=== PATIENT | male | born 1940 | race Caucasian/White ===

== ENCOUNTER 2017-11-19 15:44 | Inpatient (IN) | payer BC, MEDICARE ==
[~2017-11-19] VITALS: Ht 170.2 cm; Wt 70.0 kg
[~2017-11-19 15:44] MED LIST: FLOMAX 0.40.4 MG/CAP PO; LEVAQUIN; LIPITOR 10MG10 MG PO; [UNRECOGNIZED DRUG - OTHER]
[2017-11-19 16:23] LABS: BASO % 0.2 % (0.0-2.0); EOS % 0.1 % (0-4.0); GRAN # 9.2 (1.4-6.5); GRAN % 83.4 % (42.2-75.2); HEMATOCRIT 41.1 % (42.0-52.0); HEMOGLOBIN 14.2 g/dl (13.5-18.0); LYMPH # 0.6 (1.2-3.4); LYMPH % 5.3 % (20.0-51.0); MEAN CELL VOLUME 88 fl (80.0-100.0); MEAN CORPUSCULAR HEMOGLOBIN 31 pg (27.0-31.0); MEAN CORPUSCULAR HGB CONC 35 g/dl (33.0-37.0); MEAN PLATELET VOLUME 11.4 fl (7.4-10.4); MONO # 1.1 (0.1-0.6); MONO % 10.2 % (1.7-9.3); PLATELET COUNT 243 K/mm3 (130-400); RED BLOOD COUNT 4.66 M/mm3 (4.20-5.60); REDCELL DISTRIBUTION WIDTH-CV 12.1 % (11.5-14.5)
[2017-11-19 16:28] LABS: ALBUMIN 3.4 gm/dL (3.5-5.0); BILIRUBIN,TOTAL 0.5 mg/dL (0.0-1.0); CALCIUM 8.8 mg/dL (8.4-10.2); CREATININE, serum 1.1 mg/dL (0.66-1.25); POTASSIUM 3.2 mmol/L (3.4-5.0); TOTAL PROTEIN 6.8 gm/dL (6.4-8.2)
[2017-11-19 16:46] LABS: COLLECTION METHOD CATHETER
[2017-11-19 17:03] LABS: BUDDING YEAST Present /hpf; MUCOUS Present /lpf; PH 5 (5-8); SQUAMOUS EPITHELIAL 0-2 /hpf; URINE APPEARANCE Turbid; URINE BACTERIA None Seen /hpf; URINE BILIRUBIN Negative (NEGATIVE); URINE BLOOD 2+ (NEGATIVE); URINE CALCIUM OXALATE CRYSTAL Present /hpf; URINE COLOR Amber; URINE GLUCOSE Negative (NEGATIVE); URINE KETONE Negative (NEGATIVE); URINE LEUKOCYTE ESTERASE Trace (NEGATIVE); URINE NITRATE Negative (NEGATIVE); URINE PROTEIN(semi-quant) 2+ (NEGATIVE); URINE RBC >50 /hpf
[2017-11-19] MEDS ORDERED: FLOMAX 0.40.4 MG/CAP PO (19:11)
[2017-11-19] MEDS ORDERED: PRILOSEC10 MG PO (19:11)
[2017-11-19] MEDS ORDERED: SULFA (19:12)
[2017-11-19 20:29] VITALS: BP 139/77; PULSE 93; TEMP 98.7
[2017-11-19 23:48] VITALS: BP 133/90; PULSE 88; TEMP 98.7
[2017-11-20] VITALS (12 sets, daily range): BP systolic 112–139; BP diastolic 56–80; PULSE 67–93; TEMP 97.5–98.5
[2017-11-20 07:25] LABS: MEAN CELL VOLUME 90 fl (80.0-100.0); MEAN CORPUSCULAR HGB CONC 34 g/dl (33.0-37.0); MEAN PLATELET VOLUME 11.7 fl (7.4-10.4); PLATELET COUNT 202 K/mm3 (130-400); RED BLOOD COUNT 4.03 M/mm3 (4.20-5.60); REDCELL DISTRIBUTION WIDTH-CV 12.3 % (11.5-14.5)
[2017-11-20 07:26] LABS: HEMATOCRIT 36.1 % (42.0-52.0); HEMOGLOBIN 12.1 g/dl (13.5-18.0); MEAN CORPUSCULAR HEMOGLOBIN 30 pg (27.0-31.0)
[2017-11-20 07:42] LABS: BAND 1 % (0-10); LYMPHOCYTE 16 % (20.0-51.0); METAMYELOCYTE 1 % (0-0); NEUTROPHILS 72 % (42.0-75.2); PLATELET ESTIMATE NORMAL (NORMAL)
[2017-11-20 07:44] LABS: CALCIUM 7.8 mg/dL (8.4-10.2); CREATININE, serum 0.84 mg/dL (0.66-1.25); MAGNESIUM 2.3 mg/dL (1.6-2.3); POTASSIUM 3.2 mmol/L (3.4-5.0)
[2017-11-21 03:06] VITALS: BP 147/71; PULSE 85; TEMP 98
[2017-11-21 06:37] LABS: BASO % 0.2 % (0.0-2.0); EOS # 0.1 (0.0-0.7); EOS % 0.6 % (0-4.0); GRAN % 82.3 % (42.2-75.2); HEMATOCRIT 37.4 % (42.0-52.0); HEMOGLOBIN 12.6 g/dl (13.5-18.0); LYMPH # 0.8 (1.2-3.4); LYMPH % 7.5 % (20.0-51.0); MEAN CELL VOLUME 90 fl (80.0-100.0); MEAN CORPUSCULAR HEMOGLOBIN 30 pg (27.0-31.0); MEAN CORPUSCULAR HGB CONC 34 g/dl (33.0-37.0); MEAN PLATELET VOLUME 11.7 fl (7.4-10.4); MONO # 0.9 (0.1-0.6); MONO % 8.6 % (1.7-9.3); PLATELET COUNT 217 K/mm3 (130-400); RED BLOOD COUNT 4.15 M/mm3 (4.20-5.60)
[2017-11-21 06:50] LABS: CALCIUM 7.7 mg/dL (8.4-10.2); CREATININE, serum 0.7 mg/dL (0.66-1.25); POTASSIUM 3.4 mmol/L (3.4-5.0)
[2017-11-21 07:29] VITALS: BP 126/64; PULSE 76; TEMP 98.5
[2017-11-21 12:16] VITALS: BP 130/67; PULSE 68; TEMP 98.1
[2017-11-21 16:15] VITALS: BP 146/65; PULSE 68; TEMP 98.2
[2017-11-21 20:00] VITALS: BP 137/64; PULSE 64; TEMP 98
[2017-11-21 21:25] VITALS: BP 153/50; PULSE 70; TEMP 98
[2017-11-22] VITALS: BP 137/64; PULSE 64; TEMP 98
[2017-11-22 04:00] VITALS: BP 134/65; PULSE 73; TEMP 97.9
[2017-11-22 08:00] VITALS: BP 141/62; PULSE 67; TEMP 97.8
[2017-11-22 13:00] VITALS: BP 141/65; PULSE 87; TEMP 98.2
[2017-11-22 17:13] VITALS: BP 122/65; PULSE 79; TEMP 98.2
[2017-11-22 20:15] VITALS: BP 126/66; PULSE 84; TEMP 98.2
[2017-11-23] VITALS (7 sets, daily range): BP systolic 129–146; BP diastolic 60–74; PULSE 66–85; TEMP 97.5–98.5
[2017-11-23 07:41] LABS: HEMATOCRIT 37.2 % (42.0-52.0); HEMOGLOBIN 12.8 g/dl (13.5-18.0); MEAN CELL VOLUME 88 fl (80.0-100.0); MEAN CORPUSCULAR HEMOGLOBIN 30 pg (27.0-31.0); MEAN CORPUSCULAR HGB CONC 34 g/dl (33.0-37.0); MEAN PLATELET VOLUME 11.5 fl (7.4-10.4); PLATELET COUNT 270 K/mm3 (130-400); RED BLOOD COUNT 4.23 M/mm3 (4.20-5.60); REDCELL DISTRIBUTION WIDTH-CV 12.1 % (11.5-14.5)
[2017-11-23 07:50] LABS: CREATININE, serum 0.68 mg/dL (0.66-1.25); POTASSIUM 3.7 mmol/L (3.4-5.0)
[2017-11-23 08:31] LABS: BAND 4 % (0-10); EOSINOPHIL 3 % (0-4); LYMPHOCYTE 14 % (20.0-51.0); METAMYELOCYTE 1 % (0-0); NEUTROPHILS 74 % (42.0-75.2); PLATELET ESTIMATE NORMAL (NORMAL)
[2017-11-24 04:29] VITALS: BP 151/75; PULSE 70; TEMP 97.5
[2017-11-24] MEDS ORDERED: TYLENOL 325MG325 MG PO (07:22)
[2017-11-24 07:30] VITALS: BP 131/68; PULSE 70; TEMP 97.4
[2017-11-24 07:39] LABS: CREATININE, serum 0.68 mg/dL (0.66-1.25); POTASSIUM 3.9 mmol/L (3.4-5.0)
[2017-11-24 11:22] VITALS: BP 134/77; PULSE 67; TEMP 98.4
[2017-11-24 15:06] VITALS: BP 138/68; PULSE 79; TEMP 97.6
[2017-11-24 19:28] VITALS: BP 136/47; PULSE 73; TEMP 97.5
[2017-11-25 03:49] VITALS: BP 147/73; PULSE 72; TEMP 98.4
[2017-11-25 06:48] LABS: HEMATOCRIT 39.4 % (42.0-52.0); MEAN CELL VOLUME 91 fl (80.0-100.0); MEAN CORPUSCULAR HEMOGLOBIN 30 pg (27.0-31.0); MEAN CORPUSCULAR HGB CONC 33 g/dl (33.0-37.0); MEAN PLATELET VOLUME 11.3 fl (7.4-10.4); PLATELET COUNT 315 K/mm3 (130-400); RED BLOOD COUNT 4.33 M/mm3 (4.20-5.60); REDCELL DISTRIBUTION WIDTH-CV 12.3 % (11.5-14.5)
[2017-11-25 08:00] VITALS: BP 142/78; PULSE 70; TEMP 97.8
[2017-11-25 08:17] LABS: EOSINOPHIL 5 % (0-4); LYMPHOCYTE 15 % (20.0-51.0); METAMYELOCYTE 1 % (0-0); NEUTROPHILS 70 % (42.0-75.2); PLATELET ESTIMATE NORMAL (NORMAL)
[2017-11-25 10:45] VITALS: BP 135/70; PULSE 73; TEMP 97.9
[2017-11-25 16:35] VITALS: BP 119/62; PULSE 81; TEMP 97.5
[2017-11-25 20:16] VITALS: BP 113/61; PULSE 83; TEMP 98
[2017-11-25 23:57] VITALS: BP 122/67; PULSE 69; TEMP 98
[2017-11-26 03:49] VITALS: BP 141/71; PULSE 76; TEMP 97.9
[2017-11-26 07:30] VITALS: BP 142/72; PULSE 73; TEMP 97.6
[2017-11-26] MEDS ORDERED: DULCOLAX S10 MG/SUPP RC (08:43)
[2017-11-26] MEDS ORDERED: AMITIZA24 MCG PO (08:43)
== END 2017-11-26 12:39 | disposition home or self-care (01) | DRG 389 ==
LOC: COL.ER 15:44 → SURG 17:19
PROVIDERS: Emergency Medicine; Internal Medicine; Nurse Practitioner Family; Physician Assistant; Surgery
PROC: 0DJD8ZZ Inspection of Lower Intestinal Tract, Via Natural or Artificial Opening Endoscopic (ICD-10-PCS; principal; 2017-11-20 11:00)
DX: K56.7 Ileus, unspecified (principal); B37.49 Other urogenital candidiasis; M48.56XA Collapsed vertebra, not elsewhere classified, lumbar region, initial encounter for fracture; E44.0 Moderate protein-calorie malnutrition; G35 Multiple sclerosis; R19.7 Diarrhea, unspecified; R33.9 Retention of urine, unspecified; R53.81 Other malaise; E78.5 Hyperlipidemia, unspecified
CPT/HCPCS: 99222-AI; 99223-AI; 99231-AI; 99232-AI; 99233-AI; 99239; C9113; G0378; G8978-GP; G8979-GP; J0696; J1650; J2704; J3480; J7030; Q9967

== ENCOUNTER → 2018-10-21 | Outpatient (CLI) | payer MEDICARE, BC ==
[~2018-10-21] MED LIST changes: +AMITIZA24 MCG PO; +DULCOLAX S10 MG/SUPP RC; +PRILOSEC10 MG PO; +SULFA; +TYLENOL 325MG325 MG PO
== END ==
LOC: COL.RAD 15:00
DX: N31.2 Flaccid neuropathic bladder, not elsewhere classified (principal); N40.0 Benign prostatic hyperplasia without lower urinary tract symptoms

== ENCOUNTER 2019-05-17 11:21 | Outpatient (CLI) | payer MEDICARE, BC ==
[~2019-05-17] VITALS: Ht 170.2 cm; Wt 76.8 kg
[2019-05-17] MEDS ORDERED: AVONEX PEN30 MCG/0.5 IM (11:40)
[2019-05-17] MEDS ORDERED: B-121000 MCG PO (11:43)
[2019-05-17] MEDS ORDERED: VITAMIN D 1001000 IU PO (11:43)
[2019-05-17] MEDS ORDERED: ALBUTEROL0.83 MG/ML IH (11:44)
[2019-05-17 11:47] VITALS: BP 121/91; PULSE 67; TEMP 98.4
[2019-05-17] MEDS ORDERED: PULMICORT0.5 MG/2 M IH (11:47)
[2019-05-17 15:00] VITALS: BP 142/73; PULSE 73
== END 2019-05-17 15:40 | disposition home or self-care (01) ==
LOC: EUO 11:21
DX: K56.7 Ileus, unspecified (principal)

== ENCOUNTER 2024-03-22 12:43 | Inpatient (IN) | payer MEDICARE, BC ==
[~2024-03-22] VITALS: Ht 180.3 cm; Wt 75.5 kg
[~2024-03-22 12:43] MED LIST changes: +ALBUTEROL0.83 MG/ML IH; +AVONEX PEN30 MCG/0.5 IM; -LIPITOR 10MG10 MG PO; +LIPITOR20 MG PO; +PRILOSEC 20MG20 MG PO; -PRILOSEC10 MG PO; +PULMICORT0.5 MG/2 M IH; +VITAMIN B12 781 TAB PO; +VITAMIN D 1001000 IU PO
[2024-03-22] MEDS ORDERED: NS 1,000 ML IV ONE (13:00)
[2024-03-22 13:08] LABS: BASO % 0.3 % (0.0-2.0); EOS # 0.2 K/mm3 (0.0-0.7); EOS % 3.2 % (0.0-4.0); GRAN # 5.5 K/mm3 (1.4-6.5); GRAN % 75.4 % (42.2-75.2); HEMATOCRIT 39.9 % (42.0-52.0); HEMOGLOBIN 13.2 g/dl (13.5-18.0); LYMPH # 0.9 K/mm3 (1.2-3.4); LYMPH % 11.7 % (20.0-51.0); MEAN CELL VOLUME 92 fl (80.0-100.0); MEAN CORPUSCULAR HEMOGLOBIN 31 pg (27-31); MEAN CORPUSCULAR HGB CONC 33 g/dl (33.0-37.0); MEAN PLATELET VOLUME 12.6 fl (7.4-10.4); MONO # 0.7 K/mm3 (0.1-0.6); MONO % 9.3 % (1.7-9.3); PLATELET COUNT 147 K/mm3 (130-400); RED BLOOD COUNT 4.32 M/mm3 (4.20-5.60); REDCELL DISTRIBUTION WIDTH-CV 13.1 % (11.5-14.5)
[2024-03-22 13:17] LABS: INR 1.1 (0.8-3.0); PROTHROMBIN TIME 12.2 SECONDS (9.7-12.8)
[2024-03-22 13:25] LABS: ALBUMIN 3.5 g/dL (3.4-4.8); BILIRUBIN,TOTAL 0.6 mg/dL (0.2-1.2); CALCIUM 8.5 mg/dL (8.4-10.2); CREATININE, serum 1.1 mg/dL (0.72-1.25); POTASSIUM 4.4 mEq/L (3.5-4.5); TOTAL PROTEIN 6.3 g/dl (6.2-8.1)
[2024-03-22 13:52] LABS: TROPONIN-I 0.035 ng/mL (0.00-0.033)
[2024-03-22 14:09] LABS: C-REACTIVE PROTEIN 0.1 mg/dL (0.00-0.50)
[2024-03-22 14:12] LABS: COLLECTION METHOD CATHETER
[2024-03-22 14:21] LABS: URINE APPEARANCE CLOUDY (CLEAR/HAZY); URINE BLOOD 1+ (NEGATIVE); URINE COLOR YELLOW (YELLOW); URINE GLUCOSE NEGATIVE (NEGATIVE); URINE KETONE TRACE (NEGATIVE); URINE NITRATE POSITIVE (NEGATIVE); URINE PROTEIN(semi-quant) 1+ (NEGATIVE)
[2024-03-22 14:32] LABS: URINE WBC >50 /hpf (0-2)
[2024-03-22 14:33] LABS: URINE BACTERIA OCCASIONAL /hpf (NONE SEEN)
[2024-03-22] MEDS ORDERED: cefTRIAXone 1 G in Water For Injection,Sterile 10 ML IV ONE (14:45)
[2024-03-22] MEDS ORDERED: Iohexol 300 - 100 ML VIAL IV ONE (15:15)
[2024-03-22] MEDS ORDERED: NS 100 ML IV SCH (15:16)
[2024-03-22] MEDS ORDERED: Docusate Sodium 100 MG CAP PO PRN (16:15)
[2024-03-22] MEDS ORDERED: Ondansetron 4 MG/2 ML VIAL IV PRN (16:15)
[2024-03-22] MEDS ORDERED: Polyethylene Glycol 3350 17 GM PDS PO PRN (16:15)
[2024-03-22] MEDS ORDERED: LR 1,000 ML IV SCH (16:15)
[2024-03-22] MEDS ORDERED: Acetaminophen 325 MG TAB PO PRN (16:15)
--- NOTE | 2024-03-22 16:23 | NUR ---
Report received from NISHANT Yi in ED.
[2024-03-22] MEDS ORDERED: NAMENDA 10MG TA10 MG PO (16:26)
--- NOTE | 2024-03-22 17:15 | NUR ---
Pt arrived to medical floor from ED by bed. Pt spouse at bedside to assist with admission intake due to pt hard of hearing bilaterally. Admission assessment completed. Pt is A&O x4, VSS. Oriented pt and spouse to room, call light, and bathroom. Fall precautions implemented. Spouse voices to nurse that pt is able to pivot transfer from wheelchair to bed with assistance. Spouse informed this nurse that pt needs assistance with setting up meals and cutting food prior to eating. Pt denies pain rating 0/10. Home medicaitons, allergies, and pharmacy reviewed with . Pt has no request at this time. Call light within reach.
[2024-03-22] MEDS ORDERED: ARICEPT10 MG PO (17:20)
[2024-03-22 17:22] VITALS: BP_SYST 127
[2024-03-22 17:23] VITALS: BP 127/70; PULSE 60; TEMP 96.4
[2024-03-22] MEDS ORDERED: Albuterol 0.083% Neb Soln 2.5 MG/3 ML UD IH PRN (18:00)
[2024-03-22 19:58] VITALS: BP 149/57; PULSE 88
[2024-03-22 20:45] VITALS: BP_SYST 149
--- NOTE | 2024-03-22 20:45 | NUR ---
Initial shift assessment done- VSS, pt very , very [place], ?confused, pleasant , just smiles, IV fluids of LR at 75cc/hr, watson with campbell urine with sediment.
--- NOTE | 2024-03-22 20:50 | NUR ---
Maeve URENA called regarding troponin 0.033.
[2024-03-22] MEDS ORDERED: Atorvastatin 10 MG TAB PO SCH (21:00)
[2024-03-22] MEDS ORDERED: Memantine 10 MG TAB PO SCH (21:00)
[2024-03-22 23:47] VITALS: BP 148/84; PULSE 62; TEMP 98
[2024-03-23] VITALS (12 sets, daily range): BP systolic 131–152; BP diastolic 53–78; PULSE 60–70; TEMP 97.9–98.3
--- NOTE | 2024-03-23 05:18 | NUR ---
Did repositione throughout the night- tends to lean to the right,, repositioned to the left with 2 pillows at this time,, did put a mepilex on blister that has drained to coccyx also a dried callous to right buttocks.
[2024-03-23 06:25] LABS: BASO % 0.3 % (0.0-2.0); EOS # 0.2 K/mm3 (0.0-0.7); EOS % 2.7 % (0.0-4.0); GRAN # 5.4 K/mm3 (1.4-6.5); HEMOGLOBIN 12.2 g/dl (13.5-18.0); LYMPH # 0.9 K/mm3 (1.2-3.4); MEAN CELL VOLUME 92 fl (80.0-100.0); MEAN CORPUSCULAR HEMOGLOBIN 31 pg (27-31); MEAN CORPUSCULAR HGB CONC 34 g/dl (33.0-37.0); MEAN PLATELET VOLUME 12.4 fl (7.4-10.4); MONO # 0.9 K/mm3 (0.1-0.6); MONO % 11.7 % (1.7-9.3); PLATELET COUNT 115 K/mm3 (130-400); RED BLOOD COUNT 3.94 M/mm3 (4.20-5.60)
[2024-03-23 06:35] LABS: HEMATOCRIT 36.2 % (42.0-52.0)
[2024-03-23 06:47] LABS: CALCIUM 8.8 mg/dL (8.4-10.2); CREATININE, serum 0.84 mg/dL (0.72-1.25)
--- NOTE | 2024-03-23 09:29 | NUR ---
Initial visit; Patient thanked Community Service Officer Coordinator for introducing herself and offering prayer for healing and God's blessings. Community Service Officer Coordinator wished patient well.
[2024-03-23] MEDS ORDERED: VITAMIN D31000 IU PO (12:08)
--- NOTE | 2024-03-23 13:51 | NUR ---
SW attempted to meet with patient earlier today to complete initial assessment for discharge planning. Patient extremely hard of hearing and was not able to provide information other than his name and his 's name. Patient agreeable to SW calling his to complete assessment. SW attempted three times today to call . Call does not ring and goes straight to . No other contact information on chart. RN states no family has visited patient today. SW will continue to attempt to reach . Discharge plan: TBD
[2024-03-23] MEDS ORDERED: cefTRIAXone 1 G in Water For Injection,Sterile 10 ML IV SCH (15:00)
--- NOTE | 2024-03-23 15:59 | NUR ---
SW met with patient and to complete initial assessment for discharge planning. , Yennifer Serrano ([phone]) verified that they live in [place], patient sees Dr. Luan Ramirez as his PCP and they use [facility] without difficulty. Patient has a cane, walker, wheelchair, shower chair and grab bars for DME. states that patient mainly uses transporter chair. is only director day care center for patient who requires assistance with ADLs. is DPOA. shared that patient has had physical decline over the past several weeks. Patient has been to [facility] in the past and is asking for referral to [facility]. Medicare.gov list of SNFs provided. Discharge plan: SNF
--- NOTE | 2024-03-23 20:48 | NUR ---
UPON SHIFT ASSESSMENT, PATIENT WAS AWAKE IN BED AND ONLY ORIENTED TO SELF-BASELINE FOR Hx DEMENTIA. QUICK ACTIVELY DRAINING YELLOW URINE WITH FINE NON-COLORED SEDIMENT. VS ARE WNL. AFFECT IS CHEERFUL WITH MININAL VERBAL RESPONSE TO QUESTIONS. NON PRODUCTIVE COUGH NOTED. CALL LIGHT WITHIN, REACH BED ALARM ON.
[2024-03-23] MEDS ORDERED: Atorvastatin 20 MG TAB PO SCH (21:00)
[2024-03-23] MEDS ORDERED: Donepezil 5 MG TAB PO SCH (21:00)
[2024-03-24] VITALS (9 sets, daily range): BP systolic 131–164; BP diastolic 69–80; PULSE 63–83; TEMP 97.7–98
[2024-03-24 06:33] LABS: BASO % 0.2 % (0.0-2.0); EOS # 0.2 K/mm3 (0.0-0.7); EOS % 3.6 % (0.0-4.0); GRAN # 3.9 K/mm3 (1.4-6.5); GRAN % 67.3 % (42.2-75.2); LYMPH % 16.4 % (20.0-51.0); MEAN CELL VOLUME 92 fl (80.0-100.0); MEAN CORPUSCULAR HEMOGLOBIN 30 pg (27-31); MEAN CORPUSCULAR HGB CONC 33 g/dl (33.0-37.0); MEAN PLATELET VOLUME 12.4 fl (7.4-10.4); MONO # 0.7 K/mm3 (0.1-0.6); MONO % 12.3 % (1.7-9.3); PLATELET COUNT 112 K/mm3 (130-400); RED BLOOD COUNT 3.98 M/mm3 (4.20-5.60)
[2024-03-24 06:35] LABS: HEMATOCRIT 36.7 % (42.0-52.0)
[2024-03-24 06:48] LABS: CALCIUM 8.4 mg/dL (8.4-10.2); CREATININE, serum 0.88 mg/dL (0.72-1.25)
--- NOTE | 2024-03-24 08:31 | NUR ---
SW received call from Mila at [facility] accepting patient for admission when he is medically stable. Patient and notified. Discharge plan: SNF
--- NOTE | 2024-03-24 13:32 | NUR ---
PATIENT BACK FROM [facility] AT APPROX 1332.
--- NOTE | 2024-03-24 14:22 | NUR ---
PATIENT DOWN TO RADIOLOGY FOR BARRIUM SWALLOW STUDY. ALERT AND ORIENTED TO BASELINE.
--- NOTE | 2024-03-24 21:00 | NUR ---
Initial assessment done, taking po meds one at a time with water- tolerating well, alert/confused? , very, very [place], does know his birthday but was having a hard time following directions so dont know if just the [place] or some confusion. LR at 75cc/rh, Pt does denies pain,,repositioned, no stools, Kaufman with campbell urine with sediment.
[2024-03-25] VITALS (7 sets, daily range): BP systolic 124–158; BP diastolic 67–74; PULSE 58–62; TEMP 97.8–99.3
[2024-03-25 05:04] LABS: CLOSTRIDIUM DIFF A/B NEG
--- NOTE | 2024-03-25 05:27 | NUR ---
Did have incontinent liquid brown stools x2 this shift- specimen sent to lab, results came back neagative for c-diff. Has been sleeping good tonight, temp 99.3.
--- NOTE | 2024-03-25 08:00 | NUR ---
PATIENT IS ALERT SITTING IN BED EATING BREAKFAST. PATIENT IS AWARE OF PLACE AND PERSON BUT IS INTERMITTENTLY FORGETFUL. PATIENT ON ROOM AIR,DENIES PAIN AT THIS TIME.QUICK INPLACE DRAINING YELLOW CLEAR URINE. PATIENT FLUIDS INFUSING PER EMAR. PATIENT CALL LIGHT WITHIN REACH.BED AT LOWEST POSITION. BED ALARM ON.
[2024-03-25] MEDS ORDERED: CIPRO 500MG TA500 MG PO (08:48)
[2024-03-25] MEDS ORDERED: MIRALAX PA17 GM/Dose PO (08:49)
[2024-03-25] MEDS ORDERED: COLACE 100100 MG/CAP PO (08:49)
[2024-03-25] MEDS ORDERED: TYLENOL 325MG325 MG PO (08:49)
[2024-03-25] MEDS ORDERED: PROTONIX 40MG T40 MG PO (08:49)
[2024-03-25] MEDS ORDERED: ALBUTEROL0.83 MG/ML IH (08:50)
--- NOTE | 2024-03-25 10:44 | NUR ---
SW attended clinical rounds. Patient stable for discharge to [facility] today. Discharge orders and clinical updates faxed to [facility]. Transport set for 1330. UC and RN notified of transport time. SW attempted to call to review Medicare IM form. Unable to leave message for . SW will follow up with upon her arrival to patient's room to review form. Discharge plan: SNF
--- NOTE | 2024-03-25 13:20 | NUR ---
PATIENT IV DISCONTINUED. PATIENT ASSISTED BY THIS NURSE AND PCT'S DRESSING. PATIENT QUICK STAYED INPLACE PER DOCTOR'S ORDER. PATIENT AT BEDSIDE.
--- NOTE | 2024-03-25 13:36 | NUR ---
PATIENT REPORT CALLED TO NURSE RECEIVING PATIENT AT [facility]. PATIENT ESCORTED OUT OF UNIT BY [facility] STAFF. ACCOMPANIED PATIENT ON WAY OUT. PAPERWORK GIVEN TO ESCORT.
--- NOTE | 2024-03-26 13:55 | NUR ---
SW received call from [facility] sales representative womens health Mila, requesting discharge summary faxed- agency needed for records.
== END 2024-03-25 13:40 | DRG 690 ==
LOC: COL.ER 12:43 → MEDICAL 16:17
PROVIDERS: Emergency Medicine; ADMIT Internal Medicine
DX: N39.0 Urinary tract infection, site not specified (principal); G35 Multiple sclerosis; E78.5 Hyperlipidemia, unspecified; F03.90 Unspecified dementia, unspecified severity, without behavioral disturbance, psychotic disturbance, mood disturbance, and anxiety; R79.89 Other specified abnormal findings of blood chemistry; Z74.09 Other reduced mobility; R53.81 Other malaise; Z66 Do not resuscitate; R09.02 Hypoxemia; B96.20 Unspecified Escherichia coli [E. coli] as the cause of diseases classified elsewhere; Z88.8 Allergy status to other drugs, medicaments and biological substances; Z88.2 Allergy status to sulfonamides; Z79.899 Other long term (current) drug therapy; Z99.3 Dependence on wheelchair; Z11.52 Encounter for screening for COVID-19; N40.1 Benign prostatic hyperplasia with lower urinary tract symptoms; R33.8 Other retention of urine; R13.10 Dysphagia, unspecified; J40 Bronchitis, not specified as acute or chronic; K21.00 Gastro-esophageal reflux disease with esophagitis, without bleeding
CPT/HCPCS: A4314; J0696; J1650; J7030; J7120; Q9967